=== PATIENT | male | born 1975 | race Caucasian/White ===

== ENCOUNTER 2017-01-24 13:08 | Inpatient (IN) | payer OTHER ==
[2017-01-24] MEDS ORDERED: SODIUM CHLORIDE 0.9% 1,000 ML IV STA ×2 (13:17→15:33)
[2017-01-24] MEDS ORDERED: SODIUM CHLORIDE 0.9% 500 ML IV STA (13:17)
--- NOTE | 2017-01-24 13:24 | ED ---
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 No seizure activity is reported. He complains however of back pain between her shoulder blades. The pain was 7/10 severity without 8/10 and back down he was given aspirin and nitro blood pressure was 100 systolic glucose was adequate he was noted after first nitro have multiple PVCs possibly trigeminy per paramedics. The patient does state her past like this before has no known history of heart or lung disease he occasionally smokes cigars denies alcohol or drugs. Currently is symptom free at this time. He will was noted initially to have a blood pressure 83/48 upon arrival MD Complaint: loss of consciousness, other - Related Data Home Medications Medication Instructions Recorded Confirmed Escitalopram [Lexapro] 10 mg PO DAILY 01/24/17 01/24/17 Ibuprofen [Motrin] 800 mg PO Q6HR PRN 01/24/17 01/24/17 Ranitidine HCl [Zantac] 150 mg PO BID 01/24/17 01/24/17 Allergies Allergy/AdvReac Type Severity Reaction Status Date / Time No Known Allergies Allergy Verified 01/24/17 14:05 Review of Systems ROS Statement: Those systems with pertinent positive or pertinent negative responses have been documented in the HPI. ROS Other: All systems not noted in ROS Statement are negative. Past Medical History Past Medical History: GERD/Reflux History of Any Multi-Drug Resistant Organisms: MRSA Date of last positivie culture/infection: 2014 MDRO Source:: skin Additional Past Surgical History / Comment(s): ceptalplasty 2006 Past Psychological History: Depression Smoking Status: Current some day smoker Past Alcohol Use History: Occasional Past Drug Use History: None Reported General Exam - General Exam Comments Initial Comments: Is a well-developed well-nourished awake alert oriented 3 male Limitations: no limitations General appearance: alert, in no apparent distress Head exam: Present: atraumatic, normocephalic, normal inspection Eye exam: Present: normal appearance, PERRL, EOMI. Absent: scleral icterus, conjunctival injection, periorbital swelling ENT exam: Present: normal exam, mucous membranes moist Neck exam: Present: normal inspection. Absent: tenderness, meningismus, lymphadenopathy Respiratory exam: Present: normal lung sounds bilaterally. Absent: respiratory distress, wheezes, rales, rhonchi, stridor Cardiovascular Exam: Present: normal rhythm, bradycardia, normal heart sounds. Absent: systolic murmur, diastolic murmur, rubs, gallop, clicks GI/Abdominal exam: Present: soft, normal bowel sounds. Absent: distended, tenderness, guarding, rebound, rigid Extremities exam: Present: normal inspection, full ROM, normal capillary refill. Absent: tenderness, pedal edema, joint swelling, calf tenderness Back exam: Present: normal inspection Neurological exam: Present: alert, oriented X3, CN II-XII intact Psychiatric exam: Present: normal affect, normal mood Skin exam: Present: warm, dry, intact, normal color. Absent: rash Course Vital Signs 01/24/17 01/24/17 01/24/17 13:13 14:19 15:00 Temperature 97.6 F Pulse Rate 59 L 57 L 61 Respiratory 18 18 18 Rate Blood Pressure 83/48 85/46 84/50 O2 Sat by Pulse 98 100 100 Oximetry - Reevaluation(s) Reevaluation #1: 01/24/17 15:53 I did discuss the findings with the patient initial plan was to admit him for cardiology consultation. The patient did start developing more chest pain and repeat EKG was done showing a sinus bradycardia with a rate of 52 appear of 01 24 QRS duration 106 QT/QTC of 42/448 there is evidence of ST elevations in leads II, III, and F aVF with reciprocal aVL depression. Additionally there is some ST depressions in V2 through V6 Reevaluation #2: 01/24/17 15:54 I did discuss the case with Dr. Abbott the [employer] has been otherwise. A STEMI alert has been called. EKG Findings - EKG Results: EKG: interpreted by PAUL, sinus rhythm (Sinus bradycardia rate of 51. Interval 120 QRS duration 102 QT since QTC of 452/[address]-T wave changes.) Medical Decision Making - Lab Data Result diagrams: 01/24/17 13:25 01/24/17 13:25 Lab Results 01/24/17 01/24/17 01/24/17 Range/Units 13:25 13:25 13:25 WBC (3.8-10.6) k/uL RBC (4.30-5.90) m/uL Hgb (13.0-17.5) gm/dL Hct (39.0-53.0) % MCV (80.0-100.0) fL MCH (25.0-35.0) pg MCHC (31.0-37.0) g/dL RDW (11.5-15.5) % Plt Count (150-450) k/uL Neutrophils % % Lymphocytes % % Monocytes % % Eosinophils % % Basophils % % Neutrophils # (1.3-7.7) k/uL Lymphocytes # (1.0-4.8) k/uL Monocytes # (0-1.0) k/uL Eosinophils # (0-0.7) k/uL Basophils # (0-0.2) k/uL PT 11.1 (9.0-12.0) sec INR 1.1 (<1.2) APTT 22.7 (22.0-30.0) sec D-Dimer 0.29 (<0.60) mg/L FEU Sodium 140 (137-145) mmol/L Potassium 4.0 (3.5-5.1) mmol/L Chloride 108 H (98-107) mmol/L Carbon Dioxide 20 L (22-30) mmol/L Anion Gap 12 mmol/L BUN 15 (9-20) mg/dL Creatinine 1.10 (0.66-1.25) mg/dL Est GFR (MDRD) Af Amer >60 (>60 ml/min/1.73 sqM) Est GFR (MDRD) Non-Af >60 (>60 ml/min/1.73 sqM) Glucose 88 (74-99) mg/dL Calcium 9.2 (8.4-10.2) mg/dL Magnesium 1.8 (1.6-2.3) mg/dL Total Bilirubin 1.2 (0.2-1.3) mg/dL AST 43 (17-59) U/L ALT 41 (21-72) U/L Alkaline Phosphatase 68 (38-126) U/L Total Creatine Kinase 263 H (55-170) U/L CK-MB (CK-2) 3.1 H* (0.0-2.4) ng/mL CK-MB (CK-2) Rel Index 1.2 Troponin I 0.112 H* (0.000-0.034) ng/mL Total Protein 7.0 (6.3-8.2) g/dL Albumin 3.8 (3.5-5.0) g/dL 01/24/17 Range/Units 13:25 WBC 4.9 (3.8-10.6) k/uL RBC 4.42 (4.30-5.90) m/uL Hgb 13.5 (13.0-17.5) gm/dL Hct 38.0 L (39.0-53.0) % MCV 86.1 (80.0-100.0) fL MCH 30.5 (25.0-35.0) pg MCHC 35.4 (31.0-37.0) g/dL RDW 14.5 (11.5-15.5) % Plt Count 168 (150-450) k/uL Neutrophils % 66 % Lymphocytes % 24 % Monocytes % 6 % Eosinophils % 1 % Basophils % 0 % Neutrophils # 3.2 (1.3-7.7) k/uL Lymphocytes # 1.2 (1.0-4.8) k/uL Monocytes # 0.3 (0-1.0) k/uL Eosinophils # 0.0 (0-0.7) k/uL Basophils # 0.0 (0-0.2) k/uL PT (9.0-12.0) sec INR (<1.2) APTT (22.0-30.0) sec D-Dimer (<0.60) mg/L FEU Sodium (137-145) mmol/L Potassium (3.5-5.1) mmol/L Chloride (98-107) mmol/L Carbon Dioxide (22-30) mmol/L Anion Gap mmol/L BUN (9-20) mg/dL Creatinine (0.66-1.25) mg/dL Est GFR (MDRD) Af Amer (>60 ml/min/1.73 sqM) Est GFR (MDRD) Non-Af (>60 ml/min/1.73 sqM) Glucose (74-99) mg/dL Calcium (8.4-10.2) mg/dL Magnesium (1.6-2.3) mg/dL Total Bilirubin (0.2-1.3) mg/dL AST (17-59) U/L ALT (21-72) U/L Alkaline Phosphatase (38-126) U/L Total Creatine Kinase (55-170) U/L CK-MB (CK-2) (0.0-2.4) ng/mL CK-MB (CK-2) Rel Index Troponin I (0.000-0.034) ng/mL Total Protein (6.3-8.2) g/dL Albumin (3.5-5.0) g/dL Critical Care Time Critical Care Time: Yes Critical Care Time: 37 minutes of critical care time which includes initial presentation monitoring the EMS run and discussed with paramedics history physical labs x-rays reevaluation the patient. Discussion with the admitting physicians. Discussion with the tetryl screen operator. Documentation the above. Disposition Clinical Impression: Acute non-ST segment elevation myocardial infarction (STEMI) following previous myocardial infarction Disposition: ADMITTED IP TO THIS HOSP Condition: Serious Referrals: None,Stated [Primary Care Provider] - 1-2 days
[2017-01-24 13:44] LABS: Basophils % (A) 0 %; CH 30.9; CHCM 36.1; Eosinophils % (A) 1 %; HDW 3.22; HGB 13.5 gm/dL (13.0-17.5); Luc # (Auto) 0.14; Luc % (Auto) 3; Lymphocytes # (A) 1.2 k/uL (1.0-4.8); Lymphocytes % (A) 24 %; MCH 30.5 pg (25.0-35.0); MCHC 35.4 g/dL (31.0-37.0); MCV 86.1 fL (80.0-100.0); Mean Platelet Volume 6.8; Monocytes # (A) 0.3 k/uL (0-1.0); Monocytes % (A) 6 %; Neutrophils # (A) 3.2 k/uL (1.3-7.7); Neutrophils % (A) 66 %; RBC 4.42 m/uL (4.30-5.90); RDW 14.5 % (11.5-15.5); WBC 4.9 k/uL (3.8-10.6); WBC (Perox) 5.02
[2017-01-24 13:46] LABS: ALT 41 U/L (21-72); AST 43 U/L (17-59); Alkaline Phosphatase 68 U/L (38-126); Anion Gap 12 mmol/L; Blood Urea Nitrogen 15 mg/dL (9-20); Calcium 9.2 mg/dL (8.4-10.2); Carbon Dioxide 20 mmol/L (22-30); Chloride 108 mmol/L (98-107); Glucose 88 mg/dL (74-99); INR 1.1 (<1.2); Magnesium 1.8 mg/dL (1.6-2.3); Non-African American GFR(MDRD) >60 (>60 ml/min/1.73 sqM); Partial Thromboplastin Time 22.7 sec (22.0-30.0); Prothrombin Time 11.1 sec (9.0-12.0); Sodium 140 mmol/L (137-145); Total Bilirubin 1.2 mg/dL (0.2-1.3)
--- NOTE | 2017-01-24 13:56 | XR ---
EXAMINATION TYPE: XR chest 2V DATE OF EXAM: 01/24/2017 COMPARISON: None HISTORY: 41-year-old male with syncope TECHNIQUE: AP and lateral views FINDINGS: The cardiomediastinal silhouette, aorta, and pulmonary vasculature are within normal limits. Some per ibronchial cuffing on the lateral view. No consolidation or pleural effusion. IMPRESSION: Some peribronchial cuffing could represent bronchitis or chronic asthma. Otherwise, no acute cardiopu lmonary process.
[2017-01-24 14:11] LABS: Creatine Kinase MB 3.1 ng/mL (0.0-2.4); Troponin I 0.112 ng/mL (0.000-0.034)
--- NOTE | 2017-01-24 14:12 | CT ---
EXAMINATION TYPE: CT brain wo con DATE OF EXAM: 01/24/2017 COMPARISON: NONE HISTORY: Syncope Unenhanced CT of the brain was performed. The ventricles, basal cisterns and sulci overlying the cerebral convexities demonstrate a normal appe arance. There is no evidence for intracranial hemorrhage or sulcal effacement. No mass effects are seen. Osseous calvarium is intact. If symptoms persist consider MRI as clinically warranted. IMPRESSION: 1. No acute intracranial process is seen at this time.
[2017-01-24] MEDS ORDERED: HEPARIN SODIUM,PORCINE 5,000 UNIT/ML 1 ML VIAL IV ONE (15:33)
[2017-01-24] MEDS ORDERED: ASPIRIN 81 MG CHEW PO STA (15:33)
[2017-01-24] MEDS ORDERED: HEPARIN SODIUM,PORCINE/D5W PMX 25,000 UNIT in DEXTROSE/WATER 1 500ML.BAG IV SCH (15:45)
[2017-01-24] MEDS ORDERED: ATORVASTATIN 80 MG TAB PO STA (15:49)
[2017-01-24] MEDS ORDERED: NITROGLYCERIN SL TABS 0.4 MG TAB SUBLINGUAL PRN ×2 (15:56→17:19)
[2017-01-24] MEDS ORDERED: SODIUM CHLORIDE 0.9% 1,000 ML IV SCH ×2 (16:00→17:30)
[2017-01-24] MEDS ORDERED: MIDAZOLAM 2 MG/2 ML VIAL ONE (16:16)
[2017-01-24] MEDS ORDERED: LIDOCAINE 2% INJ 20 MG/ML (20 ML MDV) ONE (16:16)
[2017-01-24] MEDS ORDERED: SODIUM CHLORIDE 0.9% 1,000 ML IV ONE (16:30)
[2017-01-24] MEDS ORDERED: LIDOCAINE 2% INJ 20 MG/ML SQ ONE (16:32)
[2017-01-24] MEDS ORDERED: BIVALIRUDIN 250 MG in SODIUM CHLORIDE 0.9% 50 ML IV ONE (16:42)
[2017-01-24] MEDS ORDERED: BIVALIRUDIN BOLUS 250 MG/50 ML IV ONE ×2 (16:42)
[2017-01-24] MEDS ORDERED: DOPamine DRIP 800 MG in DEXTROSE/WATER 1 500ML.BAG IV ONE (16:44)
[2017-01-24] MEDS ORDERED: TICAGRELOR 90 MG TAB ONE ×2 (16:45→17:15)
[2017-01-24] MEDS ORDERED: TICAGRELOR 90 MG TAB PO ONE ×2 (16:47→17:20)
[2017-01-24] MEDS ORDERED: ATROPINE SULFATE 0.1 MG/ML 10ML SYRINGE IVP ONE (16:49)
[2017-01-24] MEDS ORDERED: ONDANSETRON 4 MG/2 ML VIAL ONE (16:50)
[2017-01-24] MEDS ORDERED: niCARdipine 25 MG/10 ML VIAL ONE (16:52)
[2017-01-24] MEDS ORDERED: ONDANSETRON 4 MG/2 ML VIAL IVP ONE (16:52)
[2017-01-24] MEDS ORDERED: METOPROLOL TARTRATE 5 MG/5 ML VIAL IVP ONE ×2 (16:56→16:57)
[2017-01-24] MEDS ORDERED: niCARdipine Syringe (1,000 mcg/10 mL) INTRACORON ONE (16:57)
[2017-01-24] MEDS ORDERED: ATROPINE SULFATE 0.1 MG/ML 10ML SYRINGE IV PRN (17:19)
[2017-01-24] MEDS ORDERED: MAG HYDROX/AL HYDROX/SIMETH 30 ML CUP PO PRN (17:19)
[2017-01-24] MEDS ORDERED: RX INFO: IV CONTRAST WAS GIVEN 1 EACH MISC MISCELLANE PRN (17:19)
[2017-01-24] MEDS ORDERED: ZOLPIDEM 5 MG TAB PO PRN (17:19)
[2017-01-24] MEDS ORDERED: IOHEXOL 350 MG/ML 125ML BOTTLE INJ ONE (17:22)
[2017-01-24 17:47] LABS: Glucose,Whole Blood 119 mg/dL (75-99)
[2017-01-24 18:30] VITALS: BMI 30.1
[2017-01-24] MEDS: TICAGRELOR 90 MG TAB PO SCH (20:35)
[2017-01-24 20:52] LABS: Troponin I 6.35 ng/mL (0.000-0.034)
--- NOTE | 2017-01-24 23:17 | P.HPIM ---
History of Present Illness H&P Date: 01/24/17 Chief Complaint: Chest pain Is a 41-year-old male without significant past medical history came to the ER with complaints of chest pain midsternal. Cousins with short of breath and dizziness or lightheadedness. 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 No seizure activity is reported. He complains however of back pain between her shoulder blades. The pain was 7/ 10 severity and patient was given aspirin and nitro in the ER. he was noted after first nitro have multiple PVCs possibly trigeminy per paramedics. The patient says that has no known history of heart or lung disease he occasionally smokes cigars denies alcohol or drugs. He will was noted initially to have a blood pressure 83/48 upon arrival Patient was found to have ST elevation while in the ER. He was taken to cath lab nurse and stent was placed. Patient is currently chest pain-free. Review of Systems CONSTITUTIONAL: No fever, no malaise, no fatigue. HEENT: No recent visual problems or hearing problems. Denied any sore throat. CARDIOVASCULAR: No chest pain, orthopnea, PND, no palpitations, no syncope. PULMONARY: , no hemoptysis. GASTROINTESTINAL: No diarrhea, no nausea, no vomiting, no abdominal pain. Normoactive bowel sounds. NEUROLOGICAL: No headaches, no weakness, no numbness. HEMATOLOGICAL: Denies any bleeding or petechiae. GENITOURINARY: Denies any burning micturition, frequency, or urgency. MUSCULOSKELETAL/RHEUMATOLOGICAL: Denies any joint pain, swelling, or any muscle pain. ENDOCRINE: Denies any polyuria or polydipsia. The rest of the 14-point review of systems is negative. Past Medical History Past Medical History: GERD/Reflux History of Any Multi-Drug Resistant Organisms: MRSA Date of last positivie culture/infection: 2014 MDRO Source:: skin Additional Past Surgical History / Comment(s): ceptalplasty 2006 Past Anesthesia/Blood Transfusion Reactions: No Reported Reaction Smoking Status: Light tobacco smoker - Past Family History Father Family Medical History: Cancer Medications and Allergies Home Medications Medication Instructions Recorded Confirmed Type Escitalopram [Lexapro] 10 mg PO DAILY 01/24/17 01/24/17 History Ibuprofen [Motrin] 800 mg PO Q6HR PRN 01/24/17 01/24/17 History Ranitidine HCl [Zantac] 150 mg PO BID 01/24/17 01/24/17 History Allergies Allergy/AdvReac Type Severity Reaction Status Date / Time No Known Allergies Allergy Verified 01/24/17 14:05 Physical Exam Vitals: Vital Signs Temp Pulse Pulse Resp BP BP Pulse Ox 01/24/17 21:04 64 14 94/48 97 01/24/17 21:00 62 0 L 94/48 96 01/24/17 20:45 56 L 0 L 94/48 97 01/24/17 20:30 105 H 14 97/52 88 L 01/24/17 20:15 98 14 97/52 94 L 01/24/17 20:04 64 14 94/48 97 01/24/17 20:00 86 14 84/46 96 01/24/17 19:45 62 14 106/68 97 01/24/17 19:30 55 L 14 118/65 98 01/24/17 19:15 79 14 111/59 98 01/24/17 19:00 83 20 127/75 97 01/24/17 18:45 83 16 97 01/24/17 18:30 85 16 96 01/24/17 18:15 86 16 94 L 01/24/17 18:02 97.6 F 18 119/76 93 L 01/24/17 18:00 91 18 119/76 95 01/24/17 16:10 55 L 20 81/47 100 01/24/17 16:05 56 L 18 82/50 100 01/24/17 16:00 58 L 20 84/48 100 01/24/17 15:55 64 18 90/52 100 01/24/17 15:50 87 18 86/50 95 01/24/17 15:45 52 L 18 85/49 100 01/24/17 15:00 61 18 84/50 100 01/24/17 14:19 57 L 18 85/46 100 01/24/17 13:13 97.6 F 59 L 18 83/48 98 Intake and Output 01/24/17 01/24/17 01/24/17 06:59 14:59 22:59 Intake Total 1054.13 Output Total 1100 Balance -45.87 Intake: IV 854.13 Intake, IV Titration 200 Amount Sodium Chloride 0.9% 1, 200 000 ml @ 100 mls/hr IV . Q10H [facility] Rx#:[id number] Output: Urine 1100 Other: # Voids 1 # Bowel Movements 0 Weight 95.254 kg 95.254 kg Patient Weight 01/25/17 06:59 Weight 95.254 kg PHYSICAL EXAMINATION: Patient is lying in the bed comfortably, no acute distress, awake alert and oriented.. HEENT: Normocephalic. Neck is supple. Pupils reactive. Nostrils clear. Oral cavity is moist. Ears reveal no drainage. Neck reveals no JVD, carotid bruits, or thyromegaly. CHEST EXAMINATION: Trachea is central. Symmetrical expansion. Lung mcdaniel clear to auscultation and percussion. CARDIAC: Normal S1, S2 with no gallops. No murmurs ABDOMEN: Soft. Bowel sounds normal. No organomegaly. No abdominal bruits. Extremities reveal no edema. No clubbing or cyanosis Neurologically awake, alert, oriented x3 with well-coordinated movements. Skin: no rash or skin lesions Musculoskeletal: no joint swelling or deformity. Results CBC & Chem 7: 01/24/17 13:25 01/24/17 13:25 Labs: Abnormal Lab Results - Last 24 Hours (Table) 01/24/17 01/24/17 01/24/17 Range/Units 13:25 13:25 13:25 Hct 38.0 L (39.0-53.0) % Chloride 108 H (98-107) mmol/L Carbon Dioxide 20 L (22-30) mmol/L POC Glucose (mg/dL) (75-99) mg/dL Total Creatine Kinase 263 H (55-170) U/L CK-MB (CK-2) 3.1 H* (0.0-2.4) ng/mL Troponin I 0.112 H* (0.000-0.034) ng/mL 01/24/17 01/24/17 Range/Units 17:45 19:38 Hct (39.0-53.0) % Chloride (98-107) mmol/L Carbon Dioxide (22-30) mmol/L POC Glucose (mg/dL) 119 H (75-99) mg/dL Total Creatine Kinase 1109 H (55-170) U/L CK-MB (CK-2) 116.0 H* (0.0-2.4) ng/mL Troponin I 6.350 H* (0.000-0.034) ng/mL Thrombosis Risk Factor Assmnt - DVT/VTE Prophylaxis DVT/VTE Prophylaxis: Pharmacologic Prophylaxis ordered - Choose All That Apply Any of the Below Risk Factors Present?: Yes Each Factor Represents 1 point: Acute [place], Age 41-60 years, Medical pt on bed rest, Obesity (BMI >25) Other Risk Factors: No Other congenital or acquired thrombophilia - If yes, enter type in comment: No Thrombosis Risk Factor Assessment Total Risk Factor Score: 4 Thrombosis Risk Factor Assessment Level: Moderate Risk Assessment and Plan Plan: #[address] elevated [place]. Status post cardiac catheterization and stent placement. #2 occasional cigar smoking. 3 depression #4 hypotension #5 DVT prophylaxis Plan: Patiently continued on telemetry monitoring. continue with the aspirin and statins and Brilanta. Will check lipid panel. Cardiology on board. Blood pressure medications have been on hold due to hypotension. Further recommendations based on the clinical course.
[2017-01-25 02:00] LABS: Basophils % (A) 1 %; CH 31.5; CHCM 35.3; Eosinophils % (A) 0 %; HCT 38.4 % (39.0-53.0); HDW 3.09; HGB 12.8 gm/dL (13.0-17.5); Luc % (Auto) 2; Lymphocytes # (A) 0.9 k/uL (1.0-4.8); Lymphocytes % (A) 18 %; MCH 29.8 pg (25.0-35.0); MCHC 33.2 g/dL (31.0-37.0); MCV 89.7 fL (80.0-100.0); Mean Platelet Volume 7.6; Monocytes # (A) 0.3 k/uL (0-1.0); Monocytes % (A) 5 %; Neutrophils # (A) 3.7 k/uL (1.3-7.7); Neutrophils % (A) 74 %; RBC 4.28 m/uL (4.30-5.90); RDW 15.4 % (11.5-15.5); WBC (Perox) 5.09
[2017-01-25 02:08] LABS: Anion Gap 9 mmol/L; Blood Urea Nitrogen 13 mg/dL (9-20); Calcium 8.9 mg/dL (8.4-10.2); Carbon Dioxide 22 mmol/L (22-30); Chloride 108 mmol/L (98-107); Cholesterol 160 mg/dL (<200); Glucose 86 mg/dL (74-99); HDL Cholesterol 39 mg/dL (40-60); Non-African American GFR(MDRD) >60 (>60 ml/min/1.73 sqM); Potassium 4.3 mmol/L (3.5-5.1); Sodium 139 mmol/L (137-145)
[2017-01-25 02:23] LABS: Magnesium 1.9 mg/dL (1.6-2.3); Phosphorous 5.5 mg/dL (2.5-4.5)
[2017-01-25 02:39] LABS: Troponin I 36.9 ng/mL (0.000-0.034)
[2017-01-25] MEDS ORDERED: MAGNESIUM SULFATE-D5W PMX 1 GM in DEXTROSE/WATER 1 100ML.BAG IVPB SCH (08:00)
[2017-01-25] MEDS: ASPIRIN 81 MG CHEW PO SCH (08:36)
[2017-01-25] MEDS: TICAGRELOR 90 MG TAB PO SCH ×2 (08:37→20:42)
[2017-01-25] MEDS ORDERED: Magnesium Replacement Protocol 1 EACH MISC MISCELLANE PRN (08:47)
[2017-01-25] MEDS ORDERED: ASPIRIN 325 MG TAB PO SCH (09:00)
--- NOTE | 2017-01-25 09:27 | P.CRDCN ---
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 He was in his usual state of health to about a week when he started experiencing intermittent episodes of chest discomfort, as a pressure across the chest, with radiation to both arms and with shortness of breath. In the ER , he was found to be an acute inferior ST elevation myocardial infarction and also he was bradycardic. He underwent an emergent heart catheterization and was found to have normal nondominant right coronary artery, acutely occluded large dominant left circumflex coronary artery, and normal left anterior descending artery. The patient underwent successful stenting of the left circumflex using a drug- eluting stent with a good angiographic results and without any complication. By the end of the procedure, the patient was pain-free and he was hemodynamically stable. During the procedure the blood pressure dropped down and he was started on dopamine. Past Medical History Past Medical History: GERD/Reflux History of Any Multi-Drug Resistant Organisms: MRSA Date of last positivie culture/infection: 2014 MDRO Source:: skin Additional Past Surgical History / Comment(s): ceptalplasty 2007 Past Anesthesia/Blood Transfusion Reactions: No Reported Reaction Smoking Status: Light tobacco smoker - Past Family History Father Family Medical History: Cancer Medications and Allergies Home Medications Medication Instructions Recorded Confirmed Type Escitalopram [Lexapro] 10 mg PO DAILY 01/24/17 01/24/17 History Ibuprofen [Motrin] 800 mg PO Q6HR PRN 01/24/17 01/24/17 History Ranitidine HCl [Zantac] 150 mg PO BID 01/24/17 01/24/17 History Allergies Allergy/AdvReac Type Severity Reaction Status Date / Time No Known Allergies Allergy Verified 01/24/17 14:05 Physical Exam Vitals: Vital Signs Temp Pulse Pulse Resp BP BP Pulse Ox 01/25/17 07:00 69 16 99/50 97 01/25/17 06:45 74 16 104/54 96 01/25/17 06:30 73 16 104/54 96 01/25/17 06:15 75 16 91/45 96 01/25/17 06:00 65 16 91/45 95 01/25/17 05:45 73 16 106/58 99 01/25/17 05:30 86 16 106/58 99 01/25/17 05:15 64 16 99/53 99 01/25/17 05:04 16 99/53 100 01/25/17 05:00 71 16 99/53 98 01/25/17 04:45 61 16 104/63 99 01/25/17 04:30 71 16 104/63 100 01/25/17 04:15 55 L 16 94/52 100 01/25/17 04:00 85 16 94/52 100 01/25/17 03:45 58 L 16 85/47 100 01/25/17 03:30 60 16 85/47 100 01/25/17 03:15 58 L 16 88/46 100 01/25/17 03:00 59 L 16 88/46 100 01/25/17 02:45 59 L 16 94/53 99 01/25/17 02:30 64 16 94/53 99 01/25/17 02:15 52 L 0 L 90/54 100 01/25/17 02:00 62 16 96/53 99 01/25/17 01:45 59 L 16 68/38 98 01/25/17 01:30 61 16 99/61 99 01/25/17 01:15 58 L 16 99/61 100 01/25/17 01:00 57 L 16 100/54 100 01/25/17 00:45 62 16 100/54 100 01/25/17 00:30 84 16 109/59 100 01/25/17 00:15 61 16 109/59 100 01/25/17 00:00 97.8 F 61 16 109/61 100 01/24/17 23:45 62 16 109/61 100 01/24/17 23:30 61 16 101/62 100 01/24/17 23:18 58 L 16 101/62 99 01/24/17 23:15 62 0 L 101/62 100 01/24/17 23:00 60 0 L 99/57 100 01/24/17 22:45 56 L 0 L 99/57 100 01/24/17 22:30 87 16 109/71 99 01/24/17 22:15 69 16 109/71 98 01/24/17 22:00 94 16 106/65 97 01/24/17 21:45 58 L 16 106/65 97 01/24/17 21:30 62 16 96/50 99 01/24/17 21:15 71 16 96/50 97 01/24/17 21:04 64 14 94/48 97 01/24/17 21:00 62 0 L 94/48 96 01/24/17 20:45 56 L 0 L 94/48 97 01/24/17 20:30 105 H 14 97/52 88 L 01/24/17 20:15 98 14 97/52 94 L 01/24/17 20:04 64 14 94/48 97 01/24/17 20:00 97.8 F 86 14 84/46 96 01/24/17 19:45 62 14 106/68 97 01/24/17 19:30 55 L 14 118/65 98 01/24/17 19:15 79 14 111/59 98 01/24/17 19:00 83 20 127/75 97 01/24/17 18:45 83 16 97 01/24/17 18:30 85 16 96 01/24/17 18:15 86 16 94 L 01/24/17 18:02 97.6 F 18 119/76 93 L 01/24/17 18:00 91 18 119/76 95 01/24/17 16:10 55 L 20 81/47 100 01/24/17 16:05 56 L 18 82/50 100 01/24/17 16:00 58 L 20 84/48 100 01/24/17 15:55 64 18 90/52 100 01/24/17 15:50 87 18 86/50 95 01/24/17 15:45 52 L 18 85/49 100 01/24/17 15:00 61 18 84/50 100 01/24/17 14:19 57 L 18 85/46 100 01/24/17 13:13 97.6 F 59 L 18 83/48 98 Intake and Output 01/24/17 01/25/17 01/25/17 22:59 06:59 14:59 Intake Total 1154.13 700 Output Total 1100 0 0 Balance 54.13 700 0 Intake: IV 854.13 Intake, IV Titration 300 700 Amount Sodium Chloride 0.9% 1, 300 500 000 ml @ 100 mls/hr IV . Q10H [facility] Rx#:[id number] Sodium Chloride 0.9% 1, 200 000 ml As IV .[facility] Rx#:[id number] Output: Urine 1100 0 0 Other: # Voids 1 # Bowel Movements 0 0 Weight 95.254 kg 97.6 kg - Constitutional General appearance: no acute distress - Respiratory Respiratory: bilateral: CTA - Cardiovascular Rhythm: regular Heart sounds: normal: S1, S2 Results 01/25/17 01:46 01/25/17 01:46 Cardiac Enzymes 01/24/17 01/24/17 01/24/17 Range/Units 13:25 13:25 19:38 AST 43 (17-59) U/L CK-MB (CK-2) 3.1 H* 116.0 H* (0.0-2.4) ng/mL Troponin I 0.112 H* 6.350 H* (0.000-0.034) ng/mL 01/25/17 Range/Units 01:46 AST (17-59) U/L CK-MB (CK-2) 301.0 H* (0.0-2.4) ng/mL Troponin I 36.900 H* (0.000-0.034) ng/mL Coagulation 01/24/17 Range/Units 13:25 PT 11.1 (9.0-12.0) sec APTT 22.7 (22.0-30.0) sec Lipids 01/25/17 Range/Units 01:46 Triglycerides 62 (<150) mg/dL Cholesterol 160 (<200) mg/dL HDL Cholesterol 39 L (40-60) mg/dL CBC 01/24/17 01/25/17 Range/Units 13:25 01:46 WBC 4.9 5.0 (3.8-10.6) k/uL RBC 4.42 4.28 L (4.30-5.90) m/uL Hgb 13.5 12.8 L (13.0-17.5) gm/dL Hct 38.0 L 38.4 L (39.0-53.0) % Plt Count 168 148 L (150-450) k/uL Comprehensive Metabolic Panel 01/24/17 01/25/17 Range/Units 13:25 01:46 Sodium 140 139 (137-145) mmol/L Potassium 4.0 4.3 (3.5-5.1) mmol/L Chloride 108 H 108 H (98-107) mmol/L Carbon Dioxide 20 L 22 (22-30) mmol/L BUN 15 13 (9-20) mg/dL Creatinine 1.10 0.80 (0.66-1.25) mg/dL Glucose 88 86 (74-99) mg/dL Calcium 9.2 8.9 (8.4-10.2) mg/dL AST 43 (17-59) U/L ALT 41 (21-72) U/L Alkaline Phosphatase 68 (38-126) U/L Total Protein 7.0 (6.3-8.2) g/dL Albumin 3.8 (3.5-5.0) g/dL Current Medications Generic Name Dose Route Start Last Admin Trade Name Freq PRN Reason Stop Dose Admin Al Hydroxide/Mg Hydroxide 30 ml 01/24/17 17:19 Maalox PO Q4HR PRN Heartburn Aspirin 81 mg 01/25/17 09:00 01/25/17 08:36 Aspirin PO 81 mg DAILY REYNALDO Administration Atorvastatin Calcium 80 mg 01/25/17 21:00 Lipitor PO HS REYNALDO Atropine Sulfate 0.5 mg 01/24/17 17:19 Atropine IV ONCE PRN Symptomatic Bradycardia Magnesium Sulfate/Dextrose 1 100 mls @ 100 mls/hr 01/25/17 09:00 gm/ IV Solution IVPB 01/25/17 10:59 Q1H [facility] Miscellaneous Information 1 each 01/24/17 17:19 Rx Info: Iv Contrast Was Given MISCELLANE 01/26/17 17:19 DAILY PRN Per Protocol Miscellaneous Information 1 each 01/25/17 08:47 Magnesium Per Protocol MISCELLANE DAILY PRN Per Protocol Protocol Nitroglycerin 0.4 mg 01/24/17 17:19 Nitrostat SUBLINGUAL Q5M PRN Chest Pain Ticagrelor 90 mg 01/24/17 21:00 01/25/17 08:37 Brilinta PO 90 mg BID REYNALDO Administration Zolpidem Tartrate 5 mg 01/24/17 17:19 Ambien PO HS PRN Insomnia Intake and Output 01/24/17 01/25/17 01/25/17 22:59 06:59 14:59 Intake Total 1154.13 700 Output Total 1100 0 0 Balance 54.13 700 0 Intake: IV 854.13 Intake, IV Titration 300 700 Amount Sodium Chloride 0.9% 1, 300 500 000 ml @ 100 mls/hr IV . Q10H [facility] Rx#:[id number] Sodium Chloride 0.9% 1, 200 000 ml As IV .[employer] [facility] [employer] [employer] Rx#:[id number] Output: Urine 1100 0 0 Other: # Voids 1 # Bowel Movements 0 0 Weight 95.254 kg 97.6 kg 01/25/17 01:46 01/25/17 01:46 Assessment and Plan Plan: This is a pleasant 41-year-old gentleman who presented with chest discomfort and was diagnosed with acute inferior ST elevation myocardial infarction. He underwent an emergent heart catheterization and was found to have an acute total occlusion of the large dominant circumflex which was opened and stented with a good angiographic results and without any complication. He will be started on dual antiplatelet therapy as well as statin. I would hold on any beta laquita or ERICA inhibitor at this point in view of the marginally low blood pressure. obtain an echocardiogram to assess for the LV function and for wall motion abnormalities. follow-up with the patient.
--- NOTE | 2017-01-25 09:29 | P.PN ---
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 He was in his usual state of health to about a week when he started experiencing intermittent episodes of chest discomfort, as a pressure across the chest, with radiation to both arms and with shortness of breath. In the ER , he was found to be an acute inferior ST elevation myocardial infarction and also he was bradycardic. He underwent an emergent heart catheterization and was found to have normal nondominant right coronary artery, acutely occluded large dominant left circumflex coronary artery, and normal left anterior descending artery. The patient underwent successful stenting of the left circumflex using a drug- eluting stent with a good angiographic results and without any complication. On follow-up with the patient today, history had very mild chest discomfort. Hemodynamically he is stable and he is slightly tachycardic. I'm going to continue the current medical treatment was dual antiplatelet therapy and statin and add small dose of metoprolol. Objective - Vital Signs Vital signs: Vital Signs Temp 97.8 F 01/25/17 00:00 Pulse 69 01/25/17 07:00 Resp 16 01/25/17 07:00 BP 99/50 01/25/17 07:00 Pulse Ox 97 01/25/17 07:00 Intake & Output 01/24/17 01/25/17 01/25/17 18:59 06:59 18:59 Intake Total 854.13 1000 Output Total 1100 0 Balance 854.13 -100 0 Weight 95.254 kg 97.6 kg Intake: IV 854.13 Intake, IV Titration 1000 Amount Sodium Chloride 0.9% 1, 800 000 ml @ 100 mls/hr IV . Q10H [facility] Rx#:[id number] Sodium Chloride 0.9% 1, 200 000 ml As IV .[facility] Rx#:[id number] Output: Urine 1100 0 Other: # Voids 1 # Bowel Movements 0 - Constitutional General appearance: Present: no acute distress - Respiratory Respiratory: bilateral: CTA - Cardiovascular Rhythm: regular Heart sounds: normal: S1, S2 - Labs CBC & Chem 7: 01/25/17 01:46 01/25/17 01:46 Labs: Abnormal Lab Results - Last 24 Hours (Table) 01/24/17 01/24/17 01/24/17 Range/Units 13:25 13:25 13:25 RBC (4.30-5.90) m/uL Hgb (13.0-17.5) gm/dL Hct 38.0 L (39.0-53.0) % Plt Count (150-450) k/uL Lymphocytes # (1.0-4.8) k/uL Chloride 108 H (98-107) mmol/L Carbon Dioxide 20 L (22-30) mmol/L POC Glucose (mg/dL) (75-99) mg/dL Phosphorus (2.5-4.5) mg/dL Total Creatine Kinase 263 H (55-170) U/L CK-MB (CK-2) 3.1 H* (0.0-2.4) ng/mL Troponin I 0.112 H* (0.000-0.034) ng/mL LDL Cholesterol, Calc (0-99) mg/dL HDL Cholesterol (40-60) mg/dL 01/24/17 01/24/17 01/25/17 Range/Units 17:45 19:38 01:46 RBC (4.30-5.90) m/uL Hgb (13.0-17.5) gm/dL Hct (39.0-53.0) % Plt Count (150-450) k/uL Lymphocytes # (1.0-4.8) k/uL Chloride (98-107) mmol/L Carbon Dioxide (22-30) mmol/L POC Glucose (mg/dL) 119 H (75-99) mg/dL Phosphorus (2.5-4.5) mg/dL Total Creatine Kinase 1109 H 2670 H (55-170) U/L CK-MB (CK-2) 116.0 H* 301.0 H* (0.0-2.4) ng/mL Troponin I 6.350 H* 36.900 H* (0.000-0.034) ng/mL LDL Cholesterol, Calc (0-99) mg/dL HDL Cholesterol (40-60) mg/dL 01/25/17 01/25/17 01/25/17 Range/Units 01:46 01:46 01:46 RBC 4.28 L (4.30-5.90) m/uL Hgb 12.8 L (13.0-17.5) gm/dL Hct 38.4 L (39.0-53.0) % Plt Count 148 L (150-450) k/uL Lymphocytes # 0.9 L (1.0-4.8) k/uL Chloride 108 H (98-107) mmol/L Carbon Dioxide (22-30) mmol/L POC Glucose (mg/dL) (75-99) mg/dL Phosphorus 5.5 H (2.5-4.5) mg/dL Total Creatine Kinase (55-170) U/L CK-MB (CK-2) (0.0-2.4) ng/mL Troponin I (0.000-0.034) ng/mL LDL Cholesterol, Calc 109 H (0-99) mg/dL HDL Cholesterol 39 L (40-60) mg/dL Assessment and Plan Plan: This is a pleasant 41-year-old gentleman who presented with chest discomfort and was diagnosed with acute inferior ST elevation myocardial infarction. He underwent an emergent heart catheterization and was found to have an acute total occlusion of the large dominant circumflex which was opened and stented with a good angiographic results and without any complication. He will be started on dual antiplatelet therapy as well as statin. I would hold on any beta laquita or ERICA inhibitor at this point in view of the marginally low blood pressure. obtain an echocardiogram to assess for the LV function and for wall motion abnormalities. follow-up with the patient.
[2017-01-25] MEDS: MAGNESIUM SULFATE-D5W PMX 1 GM in DEXTROSE/WATER 1 100ML.BAG IVPB SCH ×2 (09:47→10:55)
[2017-01-25 10:21] LABS: Appearance,Urine Clear (Clear); Bilirubin,Urine Negative (Negative); Glucose,Urine (UA) Negative (Negative); Ketones,Urine Negative (Negative); Leukocyte Esterase,Urine Negative (Negative); Nitrite,Urine Negative (Negative); Protein,Urine Negative (Negative); Specific Gravity,Urine 1.004 (1.001-1.035); UA Billing (MACRO vs. MICRO) CHEM; Urobilinogen,Urine <2.0 mg/dL (<2.0)
--- NOTE | 2017-01-25 10:35 | ECHOF ---
Referral Reason:stemi MEASUREMENTS -------- HEIGHT: 177.8 cm WEIGHT: 97.5 kg BP: 91/45 RVIDd: 3.2 cm (< 3.3) IVSd: 1.0 cm (0.6 - 1.1) LVIDd: 4.8 cm (3.9 - 5.3) LVPWd: 1.2 cm (0.6 - 1.1) IVSs: 1.4 cm LVIDs: 4.5 cm LVPWs: 1.1 cm LA Diam: 3.9 cm (2.7 - 3.8) LAESV Index (A-L): 33.53 ml/m Ao Diam: 2.9 cm (2.0 - 3.7) AV Cusp: 2.2 cm (1.5 - 2.6) MV EXCURSION: 12.148 mm (> 18.000) MV EF SLOPE: 115 mm/s (70 - 150) EPSS: 1.2 cm MV E Patrick: 1.10 m/s MV DecT: 148 ms MV A Patrick: 0.81 m/s MV E/A Ratio: 1.36 RAP: 5.00 mmHg RVSP: 41.05 mmHg FINDINGS -------- Sinus rhythm. This was a technically good study. The left ventricular size is normal. There is borderline concentric left ventricular hypertrophy. Overall left ventricular systolic function is mildly impaired with, an EF between 45 - 50 %. Basal posterior LV wall motion is hypokinetic. Basal inferior LV wall motion is hypokinetic. The right ventricle is normal in size. LA is midly dilated 29-33ml/m2. The right atrium is normal in size. The aortic valve is trileaflet and appears structurally normal. Mild mitral annular calcification present. Mild mitral regurgitation is present. Mild tricuspid regurgitation present. There is mild pulmonary hypertension. The right ventricular systolic pressure, as measured by Doppler, is 41.05mmHg. Trace/mild (physiologic) pulmonic regurgitation. The aortic root size is normal. The inferior vena cava is mildly dilated. There is no pericardial effusion. CONCLUSIONS -------- 1. Sinus rhythm. 2. The right atrium is normal in size. 3. The aortic valve is trileaflet and appears structurally normal. 4. Mild mitral annular calcification present. 5. Mild mitral regurgitation is present. 6. Mild tricuspid regurgitation present. 7. There is mild pulmonary hypertension. 8. The right ventricular systolic pressure, as measured by Doppler, is 41.05mmHg. 9. Trace/mild (physiologic) pulmonic regurgitation. 10. The aortic root size is normal. 11. The inferior vena cava is mildly dilated. 12. This was a technically good study. 13. There is no pericardial effusion. 14. The left ventricular size is normal. 15. There is borderline concentric left ventricular hypertrophy. 16. Overall left ventricular systolic function is mildly impaired with, an EF between 45 - 50 %. 17. Basal posterior LV wall motion is hypokinetic. 18. Basal inferior LV wall motion is hypokinetic. 19. The right ventricle is normal in size. 20. LA is midly dilated 29-33ml/m2. WOOD MACHINE CARVER: Kusum Pollack RDCS
--- NOTE | 2017-01-25 11:09 | CC ---
DATE OF SERVICE: 01/25/17 PERFORMING PHYSICIAN: Mani Leong M.D., financial sales professional. PROCEDURE PERFORMED: 1. Selective right and left coronary angiogram. 2. Left heart catheterization. 3. Aspiration thrombectomy from the left circumflex coronary artery. 4. Successful stenting of the proximal left circumflex using 3.5 x 15 mm Xience DS with good angiographic results. INDICATIONS: This is a pleasant 41 year old gentleman who has no risk factors for CAD and not a smoker, presented to the hospital with chest discomfort and was found to be an acute inferior ST elevation myocardial infarction. The decision was made towards percutaneous coronary intervention. APPROACH: Right common femoral artery. COMPLICATIONS: None. LEVEL OF SEDATION: Moderate with a sedation length of about 45 minutes. PROCEDURE DESCRIPTION: After obtaining informed consent, the patient was brought to the cardiac label stamper. The right common femoral artery was cannulated using micropuncture technique. The micropuncture wire passed easily. Then, I placed a 6 [place] sheath in the right common femoral artery. Then after that, I did selective right and left coronary angiogram using Lambert Rangel for the right coronary artery and JL3.5 for the left coronary system. After that, I did intervene on the left circumflex. Please see a separate paragraph for that. After that, I did left heart catheterization using 6 [place]ian pigtail catheter. I did not perform an LV gram. The procedure was completed without any complications. SELECTIVE CORONARY ANGIOGRAM: 1. The right coronary artery is a small to medium caliber vessel and it is a nondominant vessel. It is angiographically normal. 2. The left main is angiographically normal. It bifurcates into left circumflex and left anterior descending artery. 3. The left circumflex is a large caliber vessel and it was a dominant vessel after we opened it up. The left circumflex is acutely occluded 100% in the proximal portion. 4. The left anterior descending coronary artery: The proximal left anterior descending artery is angiographically normal and gives rise into the first and second diag branch, both are angiographically normal. The mid LAD and distal LAD are angiographically normal. HEMODYNAMICS: The left ventricular end diastolic pressure was 20 mmHg. No gradient was identified across the aortic valve. MEDICAL ASSISTING PROGRAM DIRECTOR of the LEFT CIRCUMFLEX: Anticoagulation was initiated using Angiomax. Subsequently, I took a JL3.5 guiding catheter and the left main was engaged. A Whisper wire was used to cross the acute total occlusion of the proximal left circumflex. Subsequently I did aspiration thrombectomy using an [place] catheter. After that, I did balloon angioplasty using 3-0 x 12 mm balloon which was inflated for about under 12 atmospheres for about 30 seconds. After that, I was able to restore flow in the left circumflex. I deployed 3.5 x 15 mm Xience BRANDY where the stent was positioned under fluoroscopic guidance and deployed under its nominal pressure for 30 seconds. I post dilated that stent using 3.75 NC balloon. The following angiogram showed good angiographic results. The procedure was completed without any complication. CONCLUSION: 1. Acute inferior ST elevation myocardial infarction. 2. Small to medium nondominant right coronary artery. 3. Acute total occlusion of a large dominant left circumflex coronary artery in the proximal portion. 4. Normal left anterior descending artery. 5. Successful stenting of the proximal left circumflex using 3.5 x 15 mm Xience DS with good angiographic results. POSTPROCEDURE MANAGEMENT: 1. Dual antiplatelet therapy. 2. Risk factor modifications. 3. Follow-up with the patient. MINH
[2017-01-25] MEDS ORDERED: ACETAMINOPHEN TAB 325 MG TAB PO PRN (20:10)
[2017-01-25] MEDS: METOPROLOL TARTRATE 12.5 MG TAB PO SCH (20:41)
[2017-01-25] MEDS: ATORVASTATIN 80 MG TAB PO SCH (20:42)
[2017-01-26] MEDS: METOPROLOL TARTRATE 12.5 MG TAB PO SCH ×2 (07:51→20:41)
[2017-01-26] MEDS: TICAGRELOR 90 MG TAB PO SCH ×2 (07:51→20:42)
[2017-01-26] MEDS: ASPIRIN 81 MG CHEW PO SCH (07:51)
--- NOTE | 2017-01-26 08:46 | P.PN ---
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 He was in his usual state of health to about a week when he started experiencing intermittent episodes of chest discomfort, as a pressure across the chest, with radiation to both arms and with shortness of breath. In the ER , he was found to be an acute inferior ST elevation myocardial infarction and also he was bradycardic. He underwent an emergent heart catheterization and was found to have normal nondominant right coronary artery, acutely occluded large dominant left circumflex coronary artery, and normal left anterior descending artery. The patient underwent successful stenting of the left circumflex using a drug- eluting stent with a good angiographic results and without any complication. On follow-up with the patient today, history had very mild chest discomfort. Hemodynamically he is stable. I'm going to continue the current medical treatment was dual antiplatelet therapy and statin and add small dose of metoprolol. Objective - Vital Signs Vital signs: Vital Signs Temp 98.2 F 01/26/17 07:52 Pulse 79 01/26/17 07:52 Resp 16 01/26/17 08:00 BP 117/65 01/26/17 07:52 Pulse Ox 95 01/26/17 04:30 Intake & Output 01/25/17 01/26/17 01/26/17 18:59 06:59 18:59 Intake Total 1940 0 Output Total 1950 0 Balance -10 0 Weight 97.4 kg 97.4 kg Intake: Intake, IV Titration 200 Amount Magnesium Sulfate-D5w Pmx 100 1 gm In Dextrose/Water 1 100ml.bag @ 100 mls/hr IVPB Q1H [facility] Rx#: [id number] Magnesium Sulfate-D5w Pmx 100 1 gm In Dextrose/Water 1 100ml.bag @ 100 mls/hr IVPB Q1H [facility] Rx#: [id number] Oral 1740 0 Output: Urine 1950 0 Other: Voiding Method Toilet # Voids 1 1 2 # Bowel Movements 1 - Constitutional General appearance: Present: no acute distress - Respiratory Respiratory: bilateral: CTA - Cardiovascular Rhythm: regular Heart sounds: normal: S1, S2 - Labs CBC & Chem 7: 01/25/17 01:46 01/25/17 01:46 Labs: Abnormal Lab Results - Last 24 Hours (Table) 01/25/17 01/25/17 Range/Units 09:40 15:18 Troponin I 65.700 H* 45.000 H* (0.000-0.034) ng/mL Assessment and Plan Plan: This is a pleasant 41-year-old gentleman who presented with chest discomfort and was diagnosed with acute inferior ST elevation myocardial infarction. He underwent an emergent heart catheterization and was found to have an acute total occlusion of the large dominant circumflex which was opened and stented with a good angiographic results and without any complication. We'll continue the current medical treatment which included dual antiplatelet therapy and statin. The ejection fraction came in to be around 45%. The patient possibly can be transferred to selective unit and possibly can be discharged home tomorrow.
[2017-01-26] MEDS: ESCITALOPRAM 10 MG TAB PO SCH (09:04)
[2017-01-26] MEDS: ATORVASTATIN 80 MG TAB PO SCH (20:41)
[2017-01-26 21:57] VITALS: RESP 18
--- NOTE | 2017-01-26 22:18 | P.PN ---
Subjective Principal diagnosis: Acute [place] Is a 41-year-old male without significant past medical history came to the ER with complaints of chest pain midsternal. Cousins with short of breath and dizziness or lightheadedness. 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 No seizure activity is reported. He complains however of back pain between her shoulder blades. The pain was 7/ 10 severity and patient was given aspirin and nitro in the ER. he was noted after first nitro have multiple PVCs possibly trigeminy per paramedics. The patient says that has no known history of heart or lung disease he occasionally smokes cigars denies alcohol or drugs. He will was noted initially to have a blood pressure 83/48 upon arrival Patient was found to have ST elevation while in the ER. He was taken to construction laborer and stent was placed. 01/25/2017 Patient denied any, her chest pain today. Blood pressure slightly improved. No fever no chills. Patient was found to have nonsustained V. tach overnight. Note short of breath no nausea or vomiting or abdominal pain. Objective - Vital Signs Vital signs: Vital Signs Temp 99.2 F 01/25/17 20:22 Pulse 79 01/25/17 20:22 Resp 16 01/25/17 20:22 BP 110/59 01/25/17 20:22 Pulse Ox 97 01/25/17 20:22 Intake & Output 01/25/17 01/25/17 01/26/17 06:59 18:59 06:59 Intake Total 1000 1940 0 Output Total 1100 1950 0 Balance -100 -10 0 Weight 97.6 kg Intake: Intake, IV Titration 1000 200 Amount Magnesium Sulfate-D5w Pmx 100 1 gm In Dextrose/Water 1 100ml.bag @ 100 mls/hr IVPB Q1H [facility] Rx#: [id number] Magnesium Sulfate-D5w Pmx 100 1 gm In Dextrose/Water 1 100ml.bag @ 100 mls/hr IVPB Q1H [facility] Rx#: [id number] Sodium Chloride 0.9% 1, 800 000 ml @ 100 mls/hr IV . Q10H [facility] Rx#:[id number] Sodium Chloride 0.9% 1, 200 000 ml As IV .[facility] Rx#:[id number] Oral 1740 0 Output: Urine 1100 1950 0 Other: # Voids 1 1 # Bowel Movements 0 1 - Exam PHYSICAL EXAMINATION: Patient is lying in the bed comfortably, no acute distress, awake alert and oriented.. HEENT: Normocephalic. Neck is supple. Pupils reactive. Nostrils clear. Oral cavity is moist. Ears reveal no drainage. Neck reveals no JVD, carotid bruits, or thyromegaly. CHEST EXAMINATION: Trachea is central. Symmetrical expansion. Lung mcdaniel clear to auscultation and percussion. CARDIAC: Normal S1, S2 with no gallops. No murmurs ABDOMEN: Soft. Bowel sounds normal. No organomegaly. No abdominal bruits. Extremities reveal no edema. No clubbing or cyanosis Neurologically awake, alert, oriented x3 with well-coordinated movements. Skin: no rash or skin lesions Musculoskeletal: no joint swelling or deformity. - Labs CBC & Chem 7: 01/25/17 01:46 01/25/17 01:46 Labs: Abnormal Lab Results - Last 24 Hours (Table) 01/25/17 01/25/17 01/25/17 Range/Units 01:46 01:46 01:46 RBC 4.28 L (4.30-5.90) m/uL Hgb 12.8 L (13.0-17.5) gm/dL Hct 38.4 L (39.0-53.0) % Plt Count 148 L (150-450) k/uL Lymphocytes # 0.9 L (1.0-4.8) k/uL Chloride 108 H (98-107) mmol/L Phosphorus (2.5-4.5) mg/dL Total Creatine Kinase 2670 H (55-170) U/L CK-MB (CK-2) 301.0 H* (0.0-2.4) ng/mL Troponin I 36.900 H* (0.000-0.034) ng/mL LDL Cholesterol, Calc 109 H (0-99) mg/dL HDL Cholesterol 39 L (40-60) mg/dL 01/25/17 01/25/17 01/25/17 Range/Units 01:46 09:40 15:18 RBC (4.30-5.90) m/uL Hgb (13.0-17.5) gm/dL Hct (39.0-53.0) % Plt Count (150-450) k/uL Lymphocytes # (1.0-4.8) k/uL Chloride (98-107) mmol/L Phosphorus 5.5 H (2.5-4.5) mg/dL Total Creatine Kinase (55-170) U/L CK-MB (CK-2) (0.0-2.4) ng/mL Troponin I 65.700 H* 45.000 H* (0.000-0.034) ng/mL LDL Cholesterol, Calc (0-99) mg/dL HDL Cholesterol (40-60) mg/dL Assessment and Plan Plan: #[address] elevated [place]. Status post cardiac catheterization and stent placement. #2 occasional cigar smoking. 3 depression #4 hypotension #5 DVT prophylaxis Plan: Patiently continued on telemetry monitoring. continue with the aspirin and statins and Brilanta. Cardiology on board. Blood pressure medications have been on hold due to hypotension. Patient will be started on low-dose beta laquita. We will hold ERICA inhibitor's due to hypotension at this time. Further recommendations based on the clinical course.
--- NOTE | 2017-01-26 22:22 | P.PN ---
Subjective Principal diagnosis: Acute [place] Is a 41-year-old male without significant past medical history came to the ER with complaints of chest pain midsternal. Cousins with short of breath and dizziness or lightheadedness. 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 No seizure activity is reported. He complains however of back pain between her shoulder blades. The pain was 7/ 10 severity and patient was given aspirin and nitro in the ER. he was noted after first nitro have multiple PVCs possibly trigeminy per paramedics. The patient says that has no known history of heart or lung disease he occasionally smokes cigars denies alcohol or drugs. He will was noted initially to have a blood pressure 83/48 upon arrival Patient was found to have ST elevation while in the ER. He was taken to supervisor labor gang and stent was placed. 01/25/2017 Patient denied any, her chest pain today. Blood pressure slightly improved. No fever no chills. Patient was found to have nonsustained V. tach overnight. Note short of breath no nausea or vomiting or abdominal pain. 01/26/2017 Patient denied any complaints of chest pain or short of breath. Blood pressure is maintained well. No acute or additions. Patient was transferred to medical floor. CONSTITUTIONAL: No fever, no malaise, no fatigue. HEENT: No recent visual problems or hearing problems. Denied any sore throat. CARDIOVASCULAR: No chest pain, orthopnea, PND, no palpitations, no syncope. PULMONARY: , no hemoptysis. GASTROINTESTINAL: No diarrhea, no nausea, no vomiting, no abdominal pain. Normoactive bowel sounds. NEUROLOGICAL: No headaches, no weakness, no numbness. HEMATOLOGICAL: Denies any bleeding or petechiae. GENITOURINARY: Denies any burning micturition, frequency, or urgency. MUSCULOSKELETAL/RHEUMATOLOGICAL: Denies any joint pain, swelling, or any muscle pain. ENDOCRINE: Denies any polyuria or polydipsia. The rest of the 14-point review of systems is negative. Objective - Vital Signs Vital signs: Vital Signs Temp 97.5 F L 01/26/17 15:35 Pulse 72 01/26/17 15:35 Resp 16 01/26/17 15:35 BP 117/61 01/26/17 15:35 Pulse Ox 96 01/26/17 15:35 Intake & Output 01/26/17 01/26/17 01/27/17 06:59 18:59 06:59 Intake Total 0 666 Output Total 0 Balance 0 666 Weight 97.4 kg 97.4 kg Intake: IV 10 Normal Saline 10 Oral 0 656 Output: Urine 0 Other: Voiding Method Toilet # Voids 1 2 - Exam PHYSICAL EXAMINATION: Patient is lying in the bed comfortably, no acute distress, awake alert and oriented.. HEENT: Normocephalic. Neck is supple. Pupils reactive. Nostrils clear. Oral cavity is moist. Ears reveal no drainage. Neck reveals no JVD, carotid bruits, or thyromegaly. CHEST EXAMINATION: Trachea is central. Symmetrical expansion. Lung mcdaniel clear to auscultation and percussion. CARDIAC: Normal S1, S2 with no gallops. No murmurs ABDOMEN: Soft. Bowel sounds normal. No organomegaly. No abdominal bruits. Extremities reveal no edema. No clubbing or cyanosis Neurologically awake, alert, oriented x3 with well-coordinated movements. Skin: no rash or skin lesions Musculoskeletal: no joint swelling or deformity. - Labs CBC & Chem 7: 01/25/17 01:46 01/25/17 01:46 Assessment and Plan Plan: #[address] elevated [place]. Status post cardiac catheterization and stent placement to left circumflex. #2 occasional cigar smoking. 3 depression #4 hypotension. Improved #5 DVT prophylaxis #6 hyperlipidemia LDL level 109 Plan: Patiently continued on telemetry monitoring. continue with the aspirin and statins and Brilanta. Cardiology on board. Patient was started on low-dose beta laquita. We will hold ERICA inhibitor's once blood pressure is stable. Follow-up echocardiogram. Further recommendations based on the clinical course.
[2017-01-27 06:42] LABS: Basophils % (A) 1 %; CH 31.7; CHCM 35.4; Eosinophils # (A) 0.1 k/uL (0-0.7); Eosinophils % (A) 2 %; HDW 3.06; HGB 13.4 gm/dL (13.0-17.5); Luc # (Auto) 0.13; Luc % (Auto) 3; Lymphocytes # (A) 1.3 k/uL (1.0-4.8); Lymphocytes % (A) 27 %; MCHC 33.4 g/dL (31.0-37.0); MCV 89.8 fL (80.0-100.0); Mean Platelet Volume 7.6; Monocytes # (A) 0.5 k/uL (0-1.0); Monocytes % (A) 10 %; Neutrophils # (A) 2.7 k/uL (1.3-7.7); Neutrophils % (A) 58 %; RBC 4.45 m/uL (4.30-5.90); RDW 14.9 % (11.5-15.5); WBC 4.6 k/uL (3.8-10.6); WBC (Perox) 4.18
[2017-01-27 06:56] LABS: Anion Gap 9 mmol/L; Blood Urea Nitrogen 10 mg/dL (9-20); Calcium 9.2 mg/dL (8.4-10.2); Carbon Dioxide 25 mmol/L (22-30); Chloride 106 mmol/L (98-107); Glucose 97 mg/dL (74-99); Magnesium 1.8 mg/dL (1.6-2.3); Non-African American GFR(MDRD) >60 (>60 ml/min/1.73 sqM); Phosphorous 4.3 mg/dL (2.5-4.5); Potassium 4.1 mmol/L (3.5-5.1); Sodium 140 mmol/L (137-145)
[2017-01-27] MEDS: METOPROLOL TARTRATE 12.5 MG TAB PO SCH (09:13)
[2017-01-27] MEDS: ESCITALOPRAM 10 MG TAB PO SCH (09:14)
[2017-01-27] MEDS: ASPIRIN 81 MG CHEW PO SCH (09:14)
[2017-01-27] MEDS: TICAGRELOR 90 MG TAB PO SCH (09:14)
--- NOTE | 2017-01-27 11:07 | P.PN ---
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 He presented to the hospital with inferior wall ST elevation myocardial infarction. He underwent angioplasty with stent placement of the circumflex artery. Echocardiogram with Doppler study was performed which revealed an ejection fraction of 45-50%. He is hemodynamically stable this morning, denies any chest pain or difficulty in breathing. No arrhythmias noted on the monitor. Objective - Vital Signs Vital signs: Vital Signs Temp 98.0 F 01/27/17 08:10 Pulse 72 01/27/17 08:10 Resp 18 01/27/17 08:10 BP 111/62 01/27/17 08:10 Pulse Ox 98 01/27/17 08:10 Intake & Output 01/26/17 01/27/17 01/27/17 18:59 06:59 18:59 Intake Total 666 180 Balance 666 180 Weight 97.4 kg 94 kg Intake: IV 10 Normal Saline 10 Oral 656 180 Other: Voiding Method Toilet Toilet # Voids 2 - Exam PHYSICAL EXAMINATION: HEENT: Head is atraumatic, normocephalic. Pupils equal, round. Neck is supple. There is no elevated jugular venous pressure. HEART EXAMINATION: Heart S1, S2 normal. No murmur or gallop heard. CHEST EXAMINATION: Lungs are clear to auscultation and precussion. No chest wall tenderness is noted on palpation or with deep breathing. ABDOMEN: Soft, nontender. Bowel sounds are heard. No organomegaly noted. EXTREMITIES: 2+ peripheral pulses with no evidence of peripheral edema and no calf tenderness noted. NEUROLOGIC [patient is awake, alert and oriented -3.] . - Labs CBC & Chem 7: 01/27/17 06:05 01/27/17 06:05 Labs: Abnormal Lab Results - Last 24 Hours (Table) 01/27/17 Range/Units 06:05 Plt Count 145 L (150-450) k/uL Assessment and Plan (1) ST elevation (STEMI) myocardial infarction involving left circumflex coronary artery Status: Acute (2) Presence of stent in left circumflex coronary artery Status: Acute (3) Depression Status: Acute (4) Hyperlipemia Status: Acute Plan: From cardiology's perspective, patient may be able to be discharged home today. He will follow-up with a resource specialist teacher in [place] next week. Patient will be discharged home on aspirin 81 mg daily, Lipitor 80 mg daily, metoprolol tartrate 12-1/2 mg one tablet by mouth twice a day, Brilinta 90 mg one tablet by mouth twice a day and sublingual nitroglycerin as needed for chest pain. Patient has been provided prescriptions for all the above medications, who upon has been provided for the Brilinta as well and patient has agreed to pay the co- pay. He has been educated regarding his medication, diet, activity, and importance of follow-up appointment. DNP note has been reviewed, I agree with a documented findings and plan of care. Patient was seen and examined.
[2017-01-27 16:33] VITALS: BP 115/71; PULSE 65; TEMP 96.8
--- NOTE | 2017-01-28 01:52 | P.DS ---
Providers Date of admission: 01/24/17 15:49 Expected date of discharge: 01/27/17 Attending physician: Sravanthi Garcia Consults: 01/24/17 15:56 Consult Physician Urgent Consulting Provider: Mani Leogn Consult Reason/Comments: STEMI Do you want consulting provider notified?: Already Contacted 01/24/17 17:19 Consult Physician Routine Consulting Provider: [facility] Consult Reason/Comments: Post Interventional patient Do you want consulting provider notified?: Already Contacted Primary care physician: Stated None Hospital Course: Discharge diagnosis #[address] elevated [place]. Status post cardiac catheterization and stent placement to left circumflex. #2 occasional cigar smoking. 3 depression #4 hypotension. Improved #5 DVT prophylaxis #6 hyperlipidemia LDL level 109 Hospital course Patient Is a 41-year-old male without significant past medical history came to the ER with complaints of chest pain midsternal. Cousins with short of breath and dizziness or lightheadedness. 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 No seizure activity is reported. He complains however of back pain between her shoulder blades. The pain was 7/ 10 severity and patient was given aspirin and nitro in the ER. he was noted after first nitro have multiple PVCs possibly trigeminy per paramedics. The patient says that has no known history of heart or lung disease he occasionally smokes cigars denies alcohol or drugs. He will was noted initially to have a blood pressure 83/48 upon arrival Patient was found to have ST elevation while in the ER. 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 01/25/2017 Patient denied any, her chest pain today. Blood pressure slightly improved. No fever no chills. Patient was found to have nonsustained V. tach overnight. Note short of breath no nausea or vomiting or abdominal pain. 01/26/2017 Patient denied any complaints of chest pain or short of breath. Blood pressure is maintained well. No acute or additions. Patient was transferred to medical floor. 01/27/2017 Patient is stable to be discharged. denied any chest pressure or breath. Cleared by cardiology. Patient is ambulating in the hallway. Patiently continued on telemetry monitoring. continue with the aspirin and statins and Brilanta. Cardiology on board. Patient was started on low-dose beta laquita. We will hold ERICA inhibitor's once blood pressure is stable. Follow-up echocardiogram as an outpatient. PHYSICAL EXAMINATION: Patient is lying in the bed comfortably, no acute distress, awake alert and oriented.. HEENT: Normocephalic. Neck is supple. Pupils reactive. Nostrils clear. Oral cavity is moist. Ears reveal no drainage. Neck reveals no JVD, carotid bruits, or thyromegaly. CHEST EXAMINATION: Trachea is central. Symmetrical expansion. Lung mcdaniel clear to auscultation and percussion. CARDIAC: Normal S1, S2 with no gallops. No murmurs ABDOMEN: Soft. Bowel sounds normal. No organomegaly. No abdominal bruits. Extremities reveal no edema. No clubbing or cyanosis Neurologically awake, alert, oriented x3 with well-coordinated movements. Skin: no rash or skin lesions Musculoskeletal: no joint swelling or deformity. Patient Condition at Discharge: Serious Plan - Discharge Summary New Discharge Prescriptions: New Aspirin 81 mg PO DAILY #30 Atorvastatin [Lipitor] 80 mg PO HS #303 tab Metoprolol Tartrate [Lopressor] 12.5 mg PO BID #60 tab Nitroglycerin Sl Tabs [Nitrostat] 0.4 mg SUBLINGUAL Q5M PRN #25 tab PRN Reason: Chest Pain Ticagrelor [Brilinta] 90 mg PO BID #60 tab Continue Ranitidine HCl [Zantac] 150 mg PO BID Escitalopram [Lexapro] 10 mg PO DAILY Discontinued Ibuprofen [Motrin] 800 mg PO Q6HR PRN PRN Reason: Pain Discharge Medication List Escitalopram [Lexapro] 10 mg PO DAILY 01/24/17 [History] Ranitidine HCl [Zantac] 150 mg PO BID 01/24/17 [History] Aspirin 81 mg PO DAILY #30 01/27/17 [Rx] Atorvastatin [Lipitor] 80 mg PO HS #303 tab 01/27/17 [Rx] Metoprolol Tartrate [Lopressor] 12.5 mg PO BID #60 tab 01/27/17 [Rx] Nitroglycerin Sl Tabs [Nitrostat] 0.4 mg SUBLINGUAL Q5M PRN #25 tab 01/27/17 [Rx ] Ticagrelor [Brilinta] 90 mg PO BID #60 tab 01/27/17 [Rx] Follow up Appointment(s)/Referral(s): Mani Leong MD [STAFF PHYSICIAN] - 1 Week None,Stated [Primary Care Provider] - 02/05/17 9:15 am (Dr. Hugo Kinsey MD, Cardiology [address] [place] [phone]) Patient Instructions/Handouts: Myocardial Infarction (DC), Heart Catheterization (DC) Discharge Disposition: HOME SELF-CARE
== END 2017-01-27 16:36 | disposition home or self-care (01) | DRG 247 ==
LOC: EC 13:08 → 6ICU 15:49 → 6SEL 01-26 12:07
PROVIDERS: ADMIT Internal Medicine; ATTEND Internal Medicine
PROC: 4A023N7 Measurement of Cardiac Sampling and Pressure, Left Heart, Percutaneous Approach (ICD-10-PCS; 2017-01-24)
PROC: B2111ZZ Fluoroscopy of Multiple Coronary Arteries using Low Osmolar Contrast (ICD-10-PCS; 2017-01-24)
PROC: B2151ZZ Fluoroscopy of Left Heart using Low Osmolar Contrast (ICD-10-PCS; 2017-01-24)
PROC: 027034Z Dilation of Coronary Artery, One Artery with Drug-eluting Intraluminal Device, Percutaneous Approach (ICD-10-PCS; principal; 2017-01-24 16:16)
PROC: 02C03ZZ Extirpation of Matter from Coronary Artery, One Artery, Percutaneous Approach (ICD-10-PCS; 2017-01-24 16:16)
DX: I21.19 ST elevation (STEMI) myocardial infarction involving other coronary artery of inferior wall (principal); I47.2 Ventricular tachycardia; I95.9 Hypotension, unspecified; E78.5 Hyperlipidemia, unspecified; K21.9 Gastro-esophageal reflux disease without esophagitis; F32.9 Major depressive disorder, single episode, unspecified; R55 Syncope and collapse; I49.3 Ventricular premature depolarization; F17.290 Nicotine dependence, other tobacco product, uncomplicated; Z86.14 Personal history of Methicillin resistant Staphylococcus aureus infection; Z79.899 Other long term (current) drug therapy; Z80.9 Family history of malignant neoplasm, unspecified; Z56.3 Stressful work schedule
CPT/HCPCS: 36415; 70450; 71020; 80048; 80053; 80061; 81003; 82550; 82553; 83735; 84100; 84484; 85025; 85379; 85610; 85730; 93005; 93306; 93458; 96361; 96365; 96375; 99291